=== PATIENT | female | born 1975 | race African-American/Black ===

== ENCOUNTER → 2016-10-20 | Outpatient (CLI) | payer BC ==
[2016-08-24 10:11] VITALS: BP 134/72
--- NOTE | 2016-10-20 11:03 | RAD ---
Examination: X-rays of the left ankle. Clinical history: Left ankle pain, denies injury. Technique: Three views of the left ankle were obtained. Comparison: None available. Findings: No acute fracture, dislocation, or destructive bony lesion is noted. No arthropathy is noted. Bony spurs are noted at the plantar and posterior aspects of the calcaneus, consistent with enthesop athy. No soft tissue abnormality is noted. Impression: 1. No acute fracture or dislocation. Reported By:
--- NOTE | 2016-10-20 11:20 | RAD ---
HISTORY: Left knee pain, no injury Study: Three views left knee Comparison: None Findings: No evidence for acute cortical disruption or dislocation. The medial and lateral tibiofemoral sofia rtments appear unremarkable without loss of significant joint space. The lateral radiograph fails t o demonstrate significant joint effusion. Patellofemoral compartment is normal in its appearance. V enous varicosities are noted within the subcutaneous fat. IMPRESSION: No acute radiographic abnormality. Venous varicosities. Reported By:
== END ==
LOC: RAD 10:25
PROVIDERS: ATTEND Nurse Practitioner Family
DX: M25.562 Pain in left knee (principal); M25.572 Pain in left ankle and joints of left foot
CPT/HCPCS: 73564; 73610

== ENCOUNTER → 2016-11-17 | Outpatient (CLI) | payer BC ==
[2016-08-24 10:11] VITALS: BP 134/72
--- NOTE | 2016-11-17 16:01 | RAD ---
HISTORY: Dyspnea, wheezing, chest pain Study: Chest two-view Comparison: August 23, 2016 Findings: The heart is upper limits normal in size. No congestive heart failure is noted. The lungs are well i nflated but not hyperinflated. No acute alveolar infiltrates or significant interstitial lung change s are present. There is mild peribronchial thickening suggestive of bronchitis. No pleural effusions are identified. The bony thorax is unremarkable. IMPRESSION: Mild peribronchial thickening suggestive of bronchitis Reported By:
== END ==
LOC: RAD 14:44
PROVIDERS: ATTEND Nurse Practitioner Family
DX: R06.09 Other forms of dyspnea (principal); R06.2 Wheezing; R07.89 Other chest pain
CPT/HCPCS: 71020

== ENCOUNTER 2016-11-24 15:46 | Inpatient (IN) | payer BC ==
[2016-11-24] MEDS ORDERED: NS 1/2 1000 ML IV 1,000 ML IV ONE (16:37)
[2016-11-24] MEDS ORDERED: SALINE 3% 15 ML NEB TX ONE (16:45)
[2016-11-24] MEDS: NS 1/2 1000 ML IV 1,000 ML IV SCH (17:00)
[2016-11-24] MEDS: ROBITUSSIN DM PO SCH ×2 (17:00→21:23)
[2016-11-24 17:16] LABS: BASOPHILS # (AUTO) 0.1 X10^3/uL (0.0-0.1); BASOPHILS % (AUTO) 0.9 % (0.2-1.0); EOSINOPHILS # (AUTO) 0.2 x10^3/uL (0.0-0.2); EOSINOPHILS % (AUTO) 2.6 % (0.9-2.9); HEMATOCRIT 33.7 % (36.0-47.0); HEMOGLOBIN 11.1 g/dL (12.0-16.0); LYMPHOCYTES # (AUTO) 2.4 X10^3/uL (1.3-2.9); LYMPHOCYTES % (AUTO) 26.2 % (21.0-51.0); MEAN CORPUSCULAR HEMOGLOBIN 28.1 pg (27.0-34.0); MEAN CORPUSCULAR VOLUME 85.3 fL (80.0-100.0); MEAN PLATELET VOLUME 10.3 fL (7.4-11.0); MONOCYTES # (AUTO) 0.5 x10^3/uL (0.3-0.8); MONOCYTES % (AUTO) 5.6 % (0.0-13.0); NEUTROPHILS # (AUTO) 5.9 x10^3/uL (2.2-4.8); NEUTROPHILS % (AUTO) 64.7 % (42.0-75.0); PLATELET COUNT 292 X10^3/uL (150.0-450.0); RED BLOOD COUNT 3.95 X10^6/uL (3.5-5.4); RED CELL DISTRIBUTION WIDTH 14.1 % (11.6-16.5); WHITE BLOOD COUNT 9.1 X10^3/uL (3.6-10.0)
[2016-11-24] MEDS ORDERED: SALINE 3% 15 ML NEB TX NEB ONE (17:16)
--- NOTE | 2016-11-24 17:23 | RAD ---
CHEST RADIOGRAPHS PA AND LATERAL VIEWS CLINICAL HISTORY: 41-year-old female with shortness of breath for 3 weeks. COMPARISON: None. FINDINGS: The cardiopericardial silhouette is stable. There is no focal consolidation, pleural effu gina or pneumothorax. The lungs are well inflated. No significant change in prominent perihilar lung markings with peribronchial cuffing. Imaged osseous structures are intact. Soft tissues are unremar kable. IMPRESSION: Findings consistent with bronchitis without other acute cardiopulmonary process. Reported By:
[2016-11-24 17:24] LABS: ALBUMIN 3.2 g/dL (3.4-5.0); CALCIUM 9.3 mg/dL (8.5-10.1); CARBON DIOXIDE 25.3 mmol/L (21-32); COR CA(FOR HYPOALB) 9.9 mg/dL (8.5-10.1); CREATININE 1.32 mg/dL (0.55-1.02); TOTAL PROTEIN 8.1 g/dL (6.4-8.2)
--- NOTE | 2016-11-24 17:33 | DR.H&P ---
H&P - History & Physical for Day of: H&P Date: 11/24/16 - Chief Complaint Chief Complaint: SOB, COUGH, EDEMA - Allergies Allergies/Adverse Reactions: Allergies Allergy/AdvReac Type Severity Reaction Status Date / Time Aspirin Allergy Verified 08/20/16 14:24 Diphenhydramine Allergy Verified 08/20/16 14:24 [From Benadryl] - History of Present Illness History of Present Illness: 41 BF A DIRECT ADMIT FROM DR VAZQUEZ OFFICE AFTER PRESENTING WITH CO SOB, COUGH AND LOWER EXTREMITY EDEMA. PT WAS SEEN IN OFFICE ONE WEEK AGO WITH SAME CO, HAD CXR REVEALING AB, PT WAS TREATED WITH PO ATBX, ZITHROMAX WITHOUT IMPROVEMENT. PLAN TO ADMIT FOR IV ATBX, RESP THERAPY, BLOOD AND SPUTUM CULTURES. PT HAS HTN, DM WITH RENAL FAILURE. WILL RESUME HOME BP MEDICATION SEE LIST BELOW: Home meds:Acetaminophen w/ Codeine (Tylenol with Codeine #3) 300-30 MG Oral Tablet Start: 10/20/16. Amlodipine Besylate (Norvasc ) 2.5 MG Oral Tablet Start: 10/20/16. Azithromycin (Zithromax Z-Tom) 250 MG Oral Tablet Start: 11/17/16. Insulin Aspart (NovoLOG FlexPen) 100 UNIT/ML Subcutaneous Solution Pen-injector. Insulin Detemir (Levemir) 100 UNIT/ML Subcutaneous Solution. Lisinopril 20 MG Oral Tablet Start: 10/04/16. Metoprolol Succinate (Metoprolol Succinate ER) 50 MG Oral Tablet Extended Release 24 Hour Start: 10/04/16 - Past Medical History Past Medical History: Diabetes, Dyslipidemia, Hypertension, Renal Disease - Past Surgical History Surgical History: Cholecystectomy, Other - Family History Family Medical History: Hypertension - Social History Does patient currently use any type of tobacco product: No Have you used tobacco products in the last 12 months: No Type of Tobacco Use: None Does any household member use tobacco: No Alcohol Use: None Drug Use: None - Review of Systems Constitutional: Weakness Eyes: No Symptoms Reported ENT: No Symptoms Reported Respiratory: Cough, Shortness of Breath, SOB with Excertion, Wheezing Cardiovascular: Edema Gastrointestinal: No Symptoms Reported Genitourinary: No Symptoms Reported Musculoskeletal: Leg Pain Skin: No Symptoms Reported Neurological: No Symptoms Reported - Physical Exam Vital Signs: Temperature 97.7 F Pulse Rate [Right Brachial] 72 Pulse Rate 84 Respiratory Rate 20 Blood Pressure [Right Arm] 171/87 Blood Pressure [Left Arm] 134/72 Blood Pressure 134/72 O2 Sat by Pulse Oximetry 98 Oriented: Normal Eyes: Normal Ear: Normal Nose: Normal Throat: Normal Respiratory: RLL Diminished, LLL Diminished Cardiovascular: Normal, Edema (+EDEMA TO BILATERAL LOWER EXTREMITIES) : Normal Auscultation: Bowel Sounds: Normal Palpation: Normal Tenderness: Normal Skin: Normal Musculoskeletal: Normal Mood Description: Calm Speech Pattern: Clear, Appropriate - Assessment/Plan (1) Acute bronchitis Qualifiers: Bronchitis organism: B Status: Acute Plan: PNEUMONIA PATHWAY, ADMISSION LABS. BLOOD AND SPUTUM CULTURES. IV ATBX, REPEAT AM LABS. RESP THERAPY, CXR ON ADMISSION (2) SOB (shortness of breath) Status: Acute Plan: SEE ABOVE, SUPPLEMENTAL O2 (3) Diabetes mellitus, type II Qualifiers: Diabetes mellitus complication status: D Diabetes mellitus complication detail: D Diabetic retinopathy severity: D Proliferative retinopathy type: P Diabetes mellitus macular edema: D Diabetes mellitus mcc insulin use : D Laterality: L Chronic kidney disease stage: C Status: Chronic Plan: SSI (4) GERD (gastroesophageal reflux disease) Qualifiers: Esophagitis presence: E Status: Chronic (5) HTN (hypertension) Qualifiers: Hypertension type: H Status: Chronic Plan: RESUME HOME MEDS. LISINOPRIL. NORVASC. METOPROLOL
[2016-11-24] MEDS ORDERED: PHARMACY CONSULT - DOSE _____ XX SCH (18:00)
[2016-11-24] MEDS: ZOSYN VIAL 3.375 GM 3.375 GM in NS 100 ML IV + SPIKE MINIBAG* 100 ML IV SCH ×2 (18:32→21:30)
[2016-11-24] MEDS ORDERED: LEVAQUIN PREMIX IV 250 MG 250 MG/50 ML BAG IV SCH (20:00)
[2016-11-24] MEDS: DUONEB 0.5 MG/3 MG NEB SCH (20:38)
[2016-11-24] MEDS: SNACK - Diabetic Appropriate PO SCH (21:26)
[2016-11-25] MEDS: DUONEB 0.5 MG/3 MG NEB SCH ×5 (01:33→21:23)
[2016-11-25] MEDS: TUSSIONEX PENNKINETIC SUSP PO PRN (02:13)
[2016-11-25 04:45] LABS: BASOPHILS # (AUTO) 0.1 X10^3/uL (0.0-0.1); BASOPHILS % (AUTO) 0.8 % (0.2-1.0); EOSINOPHILS # (AUTO) 0.2 x10^3/uL (0.0-0.2); EOSINOPHILS % (AUTO) 2.3 % (0.9-2.9); HEMATOCRIT 30.6 % (36.0-47.0); HEMOGLOBIN 10.1 g/dL (12.0-16.0); LYMPHOCYTES # (AUTO) 2.2 X10^3/uL (1.3-2.9); LYMPHOCYTES % (AUTO) 29.7 % (21.0-51.0); MEAN CORPUSCULAR HEMOGLOBIN 28.3 pg (27.0-34.0); MEAN CORPUSCULAR HGB CONC 33.1 g/dL (33.0-35.0); MEAN CORPUSCULAR VOLUME 85.5 fL (80.0-100.0); MEAN PLATELET VOLUME 10.4 fL (7.4-11.0); MONOCYTES # (AUTO) 0.6 x10^3/uL (0.3-0.8); MONOCYTES % (AUTO) 8.5 % (0.0-13.0); NEUTROPHILS # (AUTO) 4.4 x10^3/uL (2.2-4.8); NEUTROPHILS % (AUTO) 58.7 % (42.0-75.0); PLATELET COUNT 254 X10^3/uL (150.0-450.0); RED BLOOD COUNT 3.58 X10^6/uL (3.5-5.4); WHITE BLOOD COUNT 7.6 X10^3/uL (3.6-10.0)
[2016-11-25 05:01] LABS: ALANINE AMINOTRANSFERASE 15 Units/L (12-78); ALBUMIN 2.6 g/dL (3.4-5.0); ALKALINE PHOSPHATASE 79 Units/L (46-116); ASPARTATE AMINO TRANSFERASE 10 Units/L (15-37); BLOOD UREA NITROGEN 22 mg/dL (7-18); CALCIUM 8.7 mg/dL (8.5-10.1); CARBON DIOXIDE 21.9 mmol/L (21-32); CHLORIDE 104 mmol/L (98-107); COR CA(FOR HYPOALB) 9.8 mg/dL (8.5-10.1); COR NA(FOR HYPERGLY) 140 mmol/L (136-145); GLUCOSE 200 mg/dL (65-99); SODIUM 138 mmol/L (136-145); TOTAL PROTEIN 6.8 g/dL (6.4-8.2); eGFR BLACK RACES > 60 (>60); eGFR NON BLACK RACES 58 (>60)
[2016-11-25] MEDS: NS 1/2 1000 ML IV 1,000 ML IV SCH ×2 (05:59→21:27)
[2016-11-25] MEDS: ZOSYN VIAL 3.375 GM 3.375 GM in NS 100 ML IV + SPIKE MINIBAG* 100 ML IV SCH ×3 (05:59→21:27)
[2016-11-25] MEDS: LEVAQUIN PREMIX IV 500 MG 500 MG/100 ML BAG IV SCH (09:28)
[2016-11-25] MEDS: ROBITUSSIN DM PO SCH ×4 (09:28→21:26)
[2016-11-25] MEDS: LASIX IVP SCH ×2 (09:29→21:27)
[2016-11-25] MEDS ORDERED: K-DUR TAB 20 MEQ PO SCH (10:00)
[2016-11-25] MEDS: HumuLIN R SUBCUT PRN ×2 (11:30→21:25)
--- NOTE | 2016-11-25 18:46 | PCM.PROG ---
Progress Note - Progress Note for Day of Date: 11/25/16 - Subjective Subjective: COUGH, WHEEZING AND LEG SWELLING AND PAIN CONTINUED. 41 ADMITTED ONE DAY AGO AFTER FAILED OP THERAPY FOR SOB, AB. PLAN TO CONTINUE IV ATBX, RESP THERAPY, LASIX IV FOR EDEMA SINCE RENAL FUNCTION STABLE, STRICT I & OS. BP AND BS CONTROL - Past Medical Family Social History Past Med/Fam/Surg Hx: No changes since H&P Allergies: Allergies Aspirin Allergy (Verified 08/20/16 14:24) Diphenhydramine [From Benadryl] Allergy (Verified 08/20/16 14:24) - Review of Systems ROS: No change since H&P - Vital Signs and I&O's Vital Signs: Temperature 97.9 F Pulse Rate [Left Brachial] 92 Pulse Rate [Right Brachial] 85 Pulse Rate 85 Respiratory Rate 18 Blood Pressure [Right Arm] 139/74 Blood Pressure [Left Arm] 140/63 Blood Pressure 134/72 O2 Sat by Pulse Oximetry 98 Intake and Output: Intake & Output 11/23/16 11/24/16 11/25/16 11/26/16 11:59 11:59 11:59 11:59 Intake Total 680 847 Output Total 400 Balance 280 847 - Physical Exam Oriented: Normal Eyes: Normal Ear: Normal Nose: Normal Throat: Normal Respiratory: Wheezes Cardiovascular: Normal, Edema (+EDEMA TO BILATERAL LOWER EXTREMITIES) : Normal Auscultation: Bowel Sounds: Normal Tenderness: Normal Skin: Normal Musculoskeletal: Normal Mood Description: Calm Speech Pattern: Clear, Appropriate - Laboratory and Diagnostics Result Diagrams: 11/25/16 03:40 11/25/16 03:40 Labs: 11/24/16 17:53 Sputum - Expectorated Sputum Sputum Culture - Preliminary 11/24/16 17:53 Sputum - Expectorated Sputum - Final Laboratory WBC 7.6 X10^3/uL (3.6-10.0) 11/25/16 03:40 RBC 3.58 X10^6/uL (3.5-5.4) 11/25/16 03:40 Hgb 10.1 g/dL (12.0-16.0) L 11/25/16 03:40 Hct 30.6 % (36.0-47.0) L 11/25/16 03:40 MCV 85.5 fL (80.0-100.0) 11/25/16 03:40 MCH 28.3 pg (27.0-34.0) 11/25/16 03:40 MCHC 33.1 g/dL (33.0-35.0) 11/25/16 03:40 RDW 14.0 % (11.6-16.5) 11/25/16 03:40 Plt Count 254 X10^3/uL (150.0-450.0) 11/25/16 03:40 MPV 10.4 fL (7.4-11.0) 11/25/16 03:40 Neut % 58.7 % (42.0-75.0) 11/25/16 03:40 Lymph % 29.7 % (21.0-51.0) 11/25/16 03:40 [place] % 8.5 % (0.0-13.0) 11/25/16 03:40 Eos % 2.3 % (0.9-2.9) 11/25/16 03:40 Baso % 0.8 % (0.2-1.0) 11/25/16 03:40 Neut # 4.4 x10^3/uL (2.2-4.8) 11/25/16 03:40 Lymph # 2.2 X10^3/uL (1.3-2.9) 11/25/16 03:40 [place] # 0.6 x10^3/uL (0.3-0.8) 11/25/16 03:40 Eos # 0.2 x10^3/uL (0.0-0.2) 11/25/16 03:40 Baso # 0.1 X10^3/uL (0.0-0.1) 11/25/16 03:40 Absolute Nucleated RBC 0.1 /100WBC 11/25/16 03:40 Sodium 138 mmol/L (136-145) 11/25/16 03:40 Corrected Sodium 140 mmol/L (136-145) 11/25/16 03:40 Potassium 3.8 mmol/L (3.5-5.1) 11/25/16 03:40 Chloride 104 mmol/L (98-107) 11/25/16 03:40 Carbon Dioxide 21.9 mmol/L (21-32) 11/25/16 03:40 BUN 22 mg/dL (7-18) H 11/25/16 03:40 Creatinine 1.10 mg/dL (0.55-1.02) H 11/25/16 03:40 Est GFR (MDRD) Af Amer > 60 (>60) 11/25/16 03:40 Est GFR (MDRD) Non-Af 58 (>60) L 11/25/16 03:40 Glucose 200 mg/dL (65-99) H 11/25/16 03:40 Calcium 8.7 mg/dL (8.5-10.1) 11/25/16 03:40 Corrected Calcium 9.8 mg/dL (8.5-10.1) 11/25/16 03:40 Total Bilirubin 0.20 mg/dL (0.2-1.0) 11/25/16 03:40 AST 10 Units/L (15-37) L 11/25/16 03:40 ALT 15 Units/L (12-78) 11/25/16 03:40 Alkaline Phosphatase 79 Units/L (46-116) 11/25/16 03:40 Total Protein 6.8 g/dL (6.4-8.2) 11/25/16 03:40 Albumin 2.6 g/dL (3.4-5.0) L 11/25/16 03:40 Globulin 4.2 g/dL (2.5-4.5) 11/25/16 03:40 Albumin/Globulin Ratio 0.6 Ratio (1.1-2.1) L 11/25/16 03:40 - Plan (1) Acute bronchitis Status: Acute Qualifiers: Bronchitis organism: B Plan: PNEUMONIA PATHWAY, AM LABS. BLOOD AND SPUTUM CULTURES. IV ATBX,. 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 LISINOPRIL. NORVASC. METOPROLOL (6) Chronic renal insufficiency Status: Acute Qualifiers: Chronic kidney disease stage: C Plan: SEE DR KAUR CURRAN IN [place], CMP IMPROVED FROM BASELINE THIS AM, PLAN TO CONTINUE BP AND BS MONITORING. REPEAT AM LABS (7) Edema Status: Acute Qualifiers: Edema type: E Malnutrition edema type: M Trimester: T Plan: LASIX IV, I & OS. BP CONTROL
[2016-11-25] MEDS ORDERED: NS 1/2 1000 ML IV 1,000 ML IV ONE (21:20)
[2016-11-25] MEDS: PULMICORT NEB TX 0.5 MG NEB SCH (21:23)
[2016-11-25] MEDS: SNACK - Diabetic Appropriate PO SCH (21:27)
[2016-11-26] MEDS: DUONEB 0.5 MG/3 MG NEB SCH ×6 (01:07→20:50)
[2016-11-26] MEDS: HumuLIN R SUBCUT PRN ×4 (04:05→23:52)
[2016-11-26] MEDS: ZOSYN VIAL 3.375 GM 3.375 GM in NS 100 ML IV + SPIKE MINIBAG* 100 ML IV SCH ×3 (05:28→21:35)
[2016-11-26 06:21] LABS: BASOPHILS # (AUTO) 0.1 X10^3/uL (0.0-0.1); EOSINOPHILS # (AUTO) 0.1 x10^3/uL (0.0-0.2); EOSINOPHILS % (AUTO) 1.8 % (0.9-2.9); HEMATOCRIT 32.8 % (36.0-47.0); HEMOGLOBIN 10.7 g/dL (12.0-16.0); LYMPHOCYTES # (AUTO) 1.7 X10^3/uL (1.3-2.9); LYMPHOCYTES % (AUTO) 26.8 % (21.0-51.0); MEAN CORPUSCULAR HEMOGLOBIN 27.7 pg (27.0-34.0); MEAN CORPUSCULAR HGB CONC 32.5 g/dL (33.0-35.0); MEAN CORPUSCULAR VOLUME 85.3 fL (80.0-100.0); MEAN PLATELET VOLUME 10.6 fL (7.4-11.0); MONOCYTES # (AUTO) 0.6 x10^3/uL (0.3-0.8); MONOCYTES % (AUTO) 9.5 % (0.0-13.0); NEUTROPHILS # (AUTO) 3.8 x10^3/uL (2.2-4.8); NEUTROPHILS % (AUTO) 60.9 % (42.0-75.0); PLATELET COUNT 253 X10^3/uL (150.0-450.0); RED BLOOD COUNT 3.84 X10^6/uL (3.5-5.4); RED CELL DISTRIBUTION WIDTH 14.1 % (11.6-16.5); WHITE BLOOD COUNT 6.3 X10^3/uL (3.6-10.0)
--- NOTE | 2016-11-26 06:31 | RAD ---
HISTORY: Bronchitis, shortness of breath Study: Chest one view Comparison: November 24, 2016, November 17, 2016 Findings: The heart is upper limits normal in size. No congestive heart failure is noted. No acute alveolar in filtrates or pleural effusions are identified. The previously noted peribronchial thickening appears to have resolved. The bony thorax is unremarkable. IMPRESSION: Lungs now clear Reported By:
[2016-11-26 06:45] LABS: ALBUMIN 2.8 g/dL (3.4-5.0); CALCIUM 8.9 mg/dL (8.5-10.1); CARBON DIOXIDE 22.1 mmol/L (21-32); COR CA(FOR HYPOALB) 9.9 mg/dL (8.5-10.1); CREATININE 1.29 mg/dL (0.55-1.02)
[2016-11-26] MEDS: PULMICORT NEB TX 0.5 MG NEB SCH ×2 (08:44→20:50)
[2016-11-26] MEDS: LEVAQUIN PREMIX IV 500 MG 500 MG/100 ML BAG IV SCH (08:52)
[2016-11-26] MEDS: ROBITUSSIN DM PO SCH ×4 (08:52→21:36)
[2016-11-26] MEDS ORDERED: NS 100 ML IV 100 ML IV ONE (11:30)
--- NOTE | 2016-11-26 12:37 | CT ---
HISTORY: Shortness of breath, suspected pulmonary embolus. Study: CTA chest, PE protocol Comparison: No priors Technique: Multiple axial images of the chest were obtained from the thoracic inlet to the upper abd omen during the administration of IV contrast. In addition to standard multi planar reconstructions, coronal and sagittal MIP reconstructions were performed. Dose reduction techniques utilized automat ic exposure control. Findings: The mediastinum does not demonstrate significant pathological lymphadenopathy. There is no pericard ial effusion observed. The thoracic aorta is normal in its contour without evidence for aneurysmal dilatation. The central pulmonary arterial system does not demonstrate central filling defects to s uggest pulmonary emboli. Evaluation of the lung parenchyma reveals very mild centrilobular emphysema bilaterally. No infiltra te is seen. There is no evidence of pleural fluid.. No pulmonary nodule or mass can be identified. The bony thorax is unremarkable in its appearance. The liver and adrenal glands are normal. Gallbl adder surgically absent.. IMPRESSION: Very mild bilateral centrilobular emphysema. No evidence of infiltrate, adenopathy or fluid is seen. No evidence of thoracic aortic aneurysm or pulmonary embolus. Reported By:
--- NOTE | 2016-11-26 14:09 | PCM.PROG ---
Progress Note - Progress Note for Day of Date: 11/26/16 - Subjective Subjective: COUGH, WHEEZING AND CONTINUE SOB. AND LEG SWELLING. 41 ADMITTED ON 11/24 AFTER FAILED OP THERAPY FOR SOB, AB. CTA CHEST NEGATIVE. PLAN TO CONTINUE IV ATBX, RESP THERAPY, LASIX IV FOR EDEMA SINCE RENAL FUNCTION STABLE, LOW DOSE IV STEROID SOLU MEDROL 40 Q 8 X 3 DOSES FOR WHEEZING. STRICT I & OS. BP AND BS CONTROL - Past Medical Family Social History Past Med/Fam/Surg Hx: No changes since H&P Allergies: Allergies Aspirin Allergy (Verified 08/20/16 14:24) Diphenhydramine [From Benadryl] Allergy (Verified 08/20/16 14:24) - Review of Systems ROS: No change since H&P - Vital Signs and I&O's Vital Signs: Temperature 97.7 F Pulse Rate [Left Brachial] 64 Pulse Rate [Right Brachial] 98 Pulse Rate 69 Respiratory Rate 18 Blood Pressure [Right Arm] 124/67 Blood Pressure [Left Arm] 140/63 Blood Pressure 134/72 O2 Sat by Pulse Oximetry 98 Intake and Output: Intake & Output 11/24/16 11/25/16 11/26/16 11/27/16 11:59 11:59 11:59 11:59 Intake Total 680 1455 Output Total 400 600 Balance 280 855 - Physical Exam Oriented: Normal Eyes: Normal Ear: Normal Nose: Normal Throat: Normal Respiratory: Wheezes Cardiovascular: Normal, Edema (+EDEMA TO BILATERAL LOWER EXTREMITIES) : Normal Auscultation: Bowel Sounds: Normal Tenderness: Normal Skin: Normal Musculoskeletal: Normal Mood Description: Calm Speech Pattern: Clear, Appropriate - Laboratory and Diagnostics Result Diagrams: 11/26/16 03:35 11/26/16 03:35 Labs: 11/24/16 17:53 Sputum - Expectorated Sputum Sputum Culture - Final 11/24/16 17:53 Sputum - Expectorated Sputum - Final 11/24/16 17:06 Blood Blood Culture - Preliminary 11/24/16 16:56 Blood Blood Culture - Preliminary Laboratory WBC 6.3 X10^3/uL (3.6-10.0) 11/26/16 03:35 RBC 3.84 X10^6/uL (3.5-5.4) 11/26/16 03:35 Hgb 10.7 g/dL (12.0-16.0) L 11/26/16 03:35 Hct 32.8 % (36.0-47.0) L 11/26/16 03:35 MCV 85.3 fL (80.0-100.0) 11/26/16 03:35 MCH 27.7 pg (27.0-34.0) 11/26/16 03:35 MCHC 32.5 g/dL (33.0-35.0) L 11/26/16 03:35 RDW 14.1 % (11.6-16.5) 11/26/16 03:35 Plt Count 253 X10^3/uL (150.0-450.0) 11/26/16 03:35 MPV 10.6 fL (7.4-11.0) 11/26/16 03:35 Neut % 60.9 % (42.0-75.0) 11/26/16 03:35 Lymph % 26.8 % (21.0-51.0) 11/26/16 03:35 [place] % 9.5 % (0.0-13.0) 11/26/16 03:35 Eos % 1.8 % (0.9-2.9) 11/26/16 03:35 Baso % 1.0 % (0.2-1.0) 11/26/16 03:35 Neut # 3.8 x10^3/uL (2.2-4.8) 11/26/16 03:35 Lymph # 1.7 X10^3/uL (1.3-2.9) 11/26/16 03:35 [place] # 0.6 x10^3/uL (0.3-0.8) 11/26/16 03:35 Eos # 0.1 x10^3/uL (0.0-0.2) 11/26/16 03:35 Baso # 0.1 X10^3/uL (0.0-0.1) 11/26/16 03:35 Absolute Nucleated RBC 0.0 /100WBC 11/26/16 03:35 Sodium 135 mmol/L (136-145) L 11/26/16 03:35 Corrected Sodium 141 mmol/L (136-145) 11/26/16 03:35 Potassium 3.8 mmol/L (3.5-5.1) 11/26/16 03:35 Chloride 99 mmol/L (98-107) 11/26/16 03:35 Carbon Dioxide 22.1 mmol/L (21-32) 11/26/16 03:35 BUN 27 mg/dL (7-18) H 11/26/16 03:35 Creatinine 1.29 mg/dL (0.55-1.02) H 11/26/16 03:35 Est GFR (MDRD) Af Amer 58 (>60) L 11/26/16 03:35 Est GFR (MDRD) Non-Af 48 (>60) L 11/26/16 03:35 Glucose 330 mg/dL (65-99) H 11/26/16 03:35 Calcium 8.9 mg/dL (8.5-10.1) 11/26/16 03:35 Corrected Calcium 9.9 mg/dL (8.5-10.1) 11/26/16 03:35 Total Bilirubin 0.30 mg/dL (0.2-1.0) 11/26/16 03:35 AST 9 Units/L (15-37) L 11/26/16 03:35 ALT 14 Units/L (12-78) 11/26/16 03:35 Alkaline Phosphatase 85 Units/L (46-116) 11/26/16 03:35 Total Protein 7.0 g/dL (6.4-8.2) 11/26/16 03:35 Albumin 2.8 g/dL (3.4-5.0) L 11/26/16 03:35 Globulin 4.2 g/dL (2.5-4.5) 11/26/16 03:35 Albumin/Globulin Ratio 0.7 Ratio (1.1-2.1) L 11/26/16 03:35 - Plan (1) Acute bronchitis Status: Acute Qualifiers: Bronchitis organism: B Plan: PNEUMONIA PATHWAY, AM LABS. BLOOD AND SPUTUM CULTURES. IV ATBX,. 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 LISINOPRIL. NORVASC. METOPROLOL (6) Chronic renal insufficiency Status: Acute Qualifiers: Chronic kidney disease stage: C Plan: SEE DR KAUR CURRAN IN [place], CMP IMPROVED FROM BASELINE THIS AM, PLAN TO CONTINUE BP AND BS MONITORING. REPEAT AM LABS (7) Edema Status: Acute Qualifiers: Edema type: E Malnutrition edema type: M Trimester: T Plan: LASIX IV, I & OS. BP CONTROL
[2016-11-26] MEDS: SOLU-Medrol 40 MG VIAL IVP SCH ×2 (15:10→21:36)
[2016-11-26] MEDS: LASIX IVP SCH ×2 (15:11→21:35)
[2016-11-26] MEDS: TUSSIONEX PENNKINETIC SUSP PO PRN (17:03)
[2016-11-26] MEDS: SNACK - Diabetic Appropriate PO SCH (20:05)
[2016-11-26] MEDS ORDERED: LEVEMIR SC SCH (23:55)
[2016-11-26] MEDS ORDERED: HumuLIN R SUBCUT ONE (23:56)
[2016-11-27] MEDS: DUONEB 0.5 MG/3 MG NEB SCH ×7 (01:49→20:50)
[2016-11-27] MEDS ORDERED: HumuLIN R SUBCUT ONE (01:51)
[2016-11-27] MEDS: ZOSYN VIAL 3.375 GM 3.375 GM in NS 100 ML IV + SPIKE MINIBAG* 100 ML IV SCH ×3 (05:55→21:39)
[2016-11-27] MEDS: HumuLIN R SUBCUT PRN ×4 (06:04→21:41)
[2016-11-27 06:15] LABS: ALBUMIN 3.1 g/dL (3.4-5.0); CALCIUM 9.1 mg/dL (8.5-10.1); CARBON DIOXIDE 21.7 mmol/L (21-32); COR CA(FOR HYPOALB) 9.8 mg/dL (8.5-10.1); CREATININE 1.83 mg/dL (0.55-1.02)
[2016-11-27 06:24] LABS: BASOPHILS % (AUTO) 0.2 % (0.2-1.0); HEMATOCRIT 35.9 % (36.0-47.0); HEMOGLOBIN 11.6 g/dL (12.0-16.0); LYMPHOCYTES # (AUTO) 0.4 X10^3/uL (1.3-2.9); LYMPHOCYTES % (AUTO) 5.9 % (21.0-51.0); MEAN CORPUSCULAR HEMOGLOBIN 27.6 pg (27.0-34.0); MEAN CORPUSCULAR HGB CONC 32.3 g/dL (33.0-35.0); MEAN CORPUSCULAR VOLUME 85.6 fL (80.0-100.0); MEAN PLATELET VOLUME 10.6 fL (7.4-11.0); MONOCYTES # (AUTO) 0 x10^3/uL (0.3-0.8); MONOCYTES % (AUTO) 0.6 % (0.0-13.0); NEUTROPHILS # (AUTO) 6.1 x10^3/uL (2.2-4.8); NEUTROPHILS % (AUTO) 93.3 % (42.0-75.0); PLATELET COUNT 272 X10^3/uL (150.0-450.0); RED CELL DISTRIBUTION WIDTH 14.1 % (11.6-16.5); WHITE BLOOD COUNT 6.5 X10^3/uL (3.6-10.0)
[2016-11-27 07:58] LABS: PLATELET MORPHOLOGY COMMENT NORMAL (NORMAL)
[2016-11-27 07:59] LABS: BAND NEUTROPHILS % 2 % (0-10)
[2016-11-27] MEDS: PULMICORT NEB TX 0.5 MG NEB SCH ×2 (09:05→20:50)
[2016-11-27] MEDS: ROBITUSSIN DM PO SCH ×4 (09:16→21:39)
[2016-11-27] MEDS: LEVAQUIN PREMIX IV 500 MG 500 MG/100 ML BAG IV SCH (09:16)
[2016-11-27] MEDS: NS 1/2 1000 ML IV 1,000 ML IV SCH ×4 (15:41→22:11)
[2016-11-27] MEDS ORDERED: NS 1/2 1000 ML IV 1,000 ML IV ONE (21:32)
[2016-11-27] MEDS: LEVEMIR SC SCH (21:40)
[2016-11-27] MEDS: SNACK - Diabetic Appropriate PO SCH (22:12)
[2016-11-28] MEDS: DUONEB 0.5 MG/3 MG NEB SCH ×6 (01:19→20:52)
[2016-11-28 05:42] LABS: BASOPHILS # (AUTO) 0.1 X10^3/uL (0.0-0.1); BASOPHILS % (AUTO) 0.5 % (0.2-1.0); EOSINOPHILS % (AUTO) 0.2 % (0.9-2.9); HEMOGLOBIN 10.8 g/dL (12.0-16.0); LYMPHOCYTES % (AUTO) 16.8 % (21.0-51.0); MEAN CORPUSCULAR HEMOGLOBIN 27.6 pg (27.0-34.0); MEAN CORPUSCULAR HGB CONC 32.7 g/dL (33.0-35.0); MEAN CORPUSCULAR VOLUME 84.4 fL (80.0-100.0); MEAN PLATELET VOLUME 10.4 fL (7.4-11.0); MONOCYTES # (AUTO) 0.8 x10^3/uL (0.3-0.8); MONOCYTES % (AUTO) 6.6 % (0.0-13.0); NEUTROPHILS # (AUTO) 8.9 x10^3/uL (2.2-4.8); NEUTROPHILS % (AUTO) 75.9 % (42.0-75.0); PLATELET COUNT 278 X10^3/uL (150.0-450.0); RED BLOOD COUNT 3.91 X10^6/uL (3.5-5.4); WHITE BLOOD COUNT 11.7 X10^3/uL (3.6-10.0)
[2016-11-28] MEDS: NS 1/2 1000 ML IV 1,000 ML IV SCH ×2 (05:52→21:15)
[2016-11-28] MEDS: ZOSYN VIAL 3.375 GM 3.375 GM in NS 100 ML IV + SPIKE MINIBAG* 100 ML IV SCH ×3 (05:52→21:15)
[2016-11-28 05:54] LABS: ALBUMIN 2.7 g/dL (3.4-5.0); CARBON DIOXIDE 24.4 mmol/L (21-32); CREATININE 1.39 mg/dL (0.55-1.02); TOTAL PROTEIN 7.1 g/dL (6.4-8.2)
[2016-11-28] MEDS: PULMICORT NEB TX 0.5 MG NEB SCH ×2 (08:15→20:52)
--- NOTE | 2016-11-28 09:00 | RAD ---
HISTORY: Bronchitis. Cough. Study: Chest two views Comparison: November 26, 2016 Findings: The trachea is midline. The cardiac silhouette is unremarkable. There is atelectasis in the left kee ng base. The lungs are clear without focal infiltrate or effusion. The bony thorax is unremarkable. IMPRESSION: 1. Left basilar atelectasis. Otherwise, no acute cardiopulmonary disease. Reported By:
[2016-11-28] MEDS: LEVAQUIN PREMIX IV 250 MG 250 MG/50 ML BAG IV SCH (09:22)
[2016-11-28] MEDS: ROBITUSSIN DM PO SCH ×4 (09:22→20:55)
[2016-11-28] MEDS: HumuLIN R SUBCUT PRN (16:29)
[2016-11-28] MEDS: SNACK - Diabetic Appropriate PO SCH (20:58)
[2016-11-28] MEDS: LEVEMIR SC SCH (21:14)
[2016-11-29] MEDS: DUONEB 0.5 MG/3 MG NEB SCH ×4 (01:34→12:16)
[2016-11-29] MEDS: ZOSYN VIAL 3.375 GM 3.375 GM in NS 100 ML IV + SPIKE MINIBAG* 100 ML IV SCH ×2 (05:32→14:55)
[2016-11-29] MEDS ORDERED: NS 1/2 1000 ML IV 1,000 ML IV ONE (05:38)
[2016-11-29] MEDS: NS 1/2 1000 ML IV 1,000 ML IV SCH ×2 (05:53→09:42)
[2016-11-29 06:20] LABS: ALBUMIN 2.7 g/dL (3.4-5.0); ALKALINE PHOSPHATASE 81 Units/L (46-116); ASPARTATE AMINO TRANSFERASE 12 Units/L (15-37); BLOOD UREA NITROGEN 31 mg/dL (7-18); CALCIUM 8.9 mg/dL (8.5-10.1); CHLORIDE 103 mmol/L (98-107); COR CA(FOR HYPOALB) 9.9 mg/dL (8.5-10.1); COR NA(FOR HYPERGLY) 138 mmol/L (136-145); CREATININE 1.18 mg/dL (0.55-1.02); GLUCOSE 178 mg/dL (65-99); SODIUM 136 mmol/L (136-145); TOTAL PROTEIN 6.9 g/dL (6.4-8.2); eGFR BLACK RACES > 60 (>60); eGFR NON BLACK RACES 53 (>60)
[2016-11-29 06:31] LABS: BASOPHILS # (AUTO) 0.1 X10^3/uL (0.0-0.1); BASOPHILS % (AUTO) 0.9 % (0.2-1.0); EOSINOPHILS # (AUTO) 0.1 x10^3/uL (0.0-0.2); EOSINOPHILS % (AUTO) 1.3 % (0.9-2.9); HEMOGLOBIN 10.7 g/dL (12.0-16.0); LYMPHOCYTES # (AUTO) 1.8 X10^3/uL (1.3-2.9); LYMPHOCYTES % (AUTO) 23.2 % (21.0-51.0); MEAN CORPUSCULAR HEMOGLOBIN 27.5 pg (27.0-34.0); MEAN CORPUSCULAR HGB CONC 32.5 g/dL (33.0-35.0); MEAN CORPUSCULAR VOLUME 84.7 fL (80.0-100.0); MEAN PLATELET VOLUME 10.2 fL (7.4-11.0); MONOCYTES # (AUTO) 0.6 x10^3/uL (0.3-0.8); MONOCYTES % (AUTO) 8.2 % (0.0-13.0); NEUTROPHILS # (AUTO) 5.1 x10^3/uL (2.2-4.8); NEUTROPHILS % (AUTO) 66.4 % (42.0-75.0); PLATELET COUNT 252 X10^3/uL (150.0-450.0); RED BLOOD COUNT 3.89 X10^6/uL (3.5-5.4); WHITE BLOOD COUNT 7.6 X10^3/uL (3.6-10.0)
[2016-11-29 06:33] LABS: ALANINE AMINOTRANSFERASE 15 Units/L (12-78)
--- NOTE | 2016-11-29 07:07 | RAD ---
HISTORY: Bronchitis Study: Chest two-view Comparison: November 28, 2016 Findings: The trachea is midline. The cardiac silhouette is unremarkable. The lungs are free of acute alveol ar infiltrates. Bibasilar subsegmental atelectasis is present. No pleural effusions are identified.. The bony thorax is unremarkable. IMPRESSION: 1 Reported By:
[2016-11-29] MEDS: PULMICORT NEB TX 0.5 MG NEB SCH (08:22)
[2016-11-29] MEDS: ROBITUSSIN DM PO SCH ×2 (09:43→13:58)
[2016-11-29] MEDS: LEVAQUIN PREMIX IV 250 MG 250 MG/50 ML BAG IV SCH (09:43)
[2016-11-29 12:25] VITALS: BP 132/67
[2016-11-29] MEDS ORDERED: TYLENOL #3 TAB (W/CODEINE) PO PRN (13:17)
[2016-11-29] MEDS ORDERED: ZESTRIL TAB 20 MG ONE (13:50)
[2016-11-29] MEDS ORDERED: ZESTRIL TAB 20 MG PO SCH (14:00)
[2016-11-29] MEDS ORDERED: LOPRESSOR TAB 50 MG PO SCH (14:00)
[2016-11-29] MEDS ORDERED: LEVEMIR SC SCH (21:00)
[2016-11-29] MEDS ORDERED: NORVASC TAB 2.5 MG PO SCH (21:00)
== END 2016-11-29 14:50 | disposition home or self-care (01) | DRG 203 ==
LOC: MED/SURG 15:46 → OBSVTOIN 11-26 08:00
PROVIDERS: ADMIT Internal Medicine; ATTEND Internal Medicine
DX: J20.8 Acute bronchitis due to other specified organisms (principal); E11.65 Type 2 diabetes mellitus with hyperglycemia; R60.0 Localized edema; R06.02 Shortness of breath; K21.9 Gastro-esophageal reflux disease without esophagitis; I12.9 Hypertensive chronic kidney disease with stage 1 through stage 4 chronic kidney disease, or unspecified chronic kidney disease; E78.2 Mixed hyperlipidemia; N18.9 Chronic kidney disease, unspecified
CPT/HCPCS: 36415; 71010; 71020; 71275; 80053; 82947; 85025; 87040; 87070; 87205; 93005; 93010; 94640; 94760; A4222; 1956; G0378; J1815; J1940; J1956; J2543; J2920; J7620; J7626